=== PATIENT | male | born 2000 | race Caucasian/White ===

== ENCOUNTER 2021-10-23 12:47 | Emergency (ER) | payer OTHER ==
[2021-10-23 12:54] VITALS: BP 141/69
--- NOTE | 2021-10-23 14:37 | ED Physician Documentation ---
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 He states that he stood up and hit his head on a flowerpot today. No loss of consciousness. States was dazed momentarily. No nausea or vomiting. No neck or back pain. No numbness or tingling. Does not take any blood thinners. He states his boss told him to come get "checked out". Review of Systems Constitutional: denies: Fever, Chills Nose: denies: Rhinorrhea / runny nose, Congestion GI: denies: Nausea, Vomiting, Diarrhea Skin: denies: Rash Musculoskeletal: denies: Neck pain, Back pain Neurologic: denies: Focal weakness, Numbness, Seizure, Confused, Headache, LOC PD PAST MEDICAL HISTORY - Past Medical History Past Medical History: No - Allergies Allergies/Adverse Reactions: Allergies Allergy/AdvReac Type Severity Reaction Status Date / Time No Known Drug Allergies Allergy Verified 10/23/21 12:54 - Social History Does the pt smoke?: No Smoking Status: Never smoker PD ED PE NORMAL - Vitals Vital signs reviewed: Yes - General General: Alert and oriented X 3, No acute distress - HEENT HEENT: Atraumatic, PERRL, Moist mucous membranes, Pharynx benign - Neck Neck: Supple, no meningeal sign, No bony TTP, C-Spine cleared by NEXUS criteria - Cardiac Cardiac: RRR - Respiratory Respiratory: No respiratory distress, Clear bilaterally - Abdomen Abdomen: Soft, Non tender, Non distended - Derm Derm: Warm and dry - Neuro Neuro: Alert and oriented X 3, loading machine adjuster 2-12 intact, No motor deficit, No sensory deficit, Normal speech Eye Opening: Spontaneous Motor: Obeys Commands Verbal: Oriented GCS Score: 15 - Psych Psych: Normal mood, Normal affect Results - Vitals Vitals: Vital Signs - 24 hr 10/23/21 12:52 Temperature 36.0 C L Heart Rate 91 Respiratory 16 Rate Blood Pressure 141/69 H O2 Saturation 96 Oxygen O2 Source Room air PD MEDICAL DECISION MAKING - ED course Complexity details: considered differential, d/w patient ED course: Patient is asymptomatic here. Has a mild closed head injury. No indication of concussion. No indication for CT scanning. No indication of skull fracture or intracranial hemorrhage. Patient is asymptomatic. L&I forms completed. Patient counseled regarding signs and symptoms for which I believe and urgent re-evaluation would be necessary. Patient with good understanding of and agreement to plan and is comfortable going home at this time This document was made in part using voice recognition software. While efforts are made to proofread this document, sound alike and grammatical errors may occur. Departure - Departure Disposition: 01 Home, Self Care Clinical Impression: Closed head injury Qualifiers: Encounter type: initial encounter Qualified Code(s): S09.90XA - Unspecified injury of head, initial encounter Condition: Good Instructions: ED Head Injury Closed Follow-Up: your,doctor as needed [Other] Comments: Return if you worsen. This injury should not cause any alf symptoms. Discharge Date/Time: 10/23/21 14:40
== END 2021-10-23 14:40 | disposition home or self-care (01) ==
LOC: ED 12:47
DX: S09.90XA Unspecified injury of head, initial encounter (principal); X58.XXXA Exposure to other specified factors, initial encounter; Y99.0 Civilian activity done for income or pay
CPT/HCPCS: 1040M; 99281; 99282

== ENCOUNTER 2022-08-12 15:01 | Emergency (ER) | payer BC ==
--- NOTE | 2022-08-12 15:28 | ED Physician Documentation ---
History of Present Illness - Stated complaint Stated Complaint: ABD PX - Chief complaint Chief Complaint: Abd Pain - Additonal information Additional information: 21-year-old male presents emergency department for evaluation of painless rectal bleeding. Reports having bowel movement this morning and finding a lot of blood on the stool and in the toilet. Denies straining. No history of hemorrhoids. No history of similar. No history of previous surgical procedures on his abdomen. He is not anticoagulated. Does not drink or take NSAID medication. Denies abdominal pain. Review of Systems Constitutional: denies: Fever, Chills GI: reports: Bloody / black stool : reports: Reviewed and negative Skin: reports: Reviewed and negative PD PAST MEDICAL HISTORY - Allergies Allergies/Adverse Reactions: Allergies Allergy/AdvReac Type Severity Reaction Status Date / Time No Known Drug Allergies Allergy Verified 08/12/22 15:08 - Social History Does the pt smoke?: No Smoking Status: Never smoker PD ED PE NORMAL - General General: Alert and oriented X 3, No acute distress, Well developed/nourished - HEENT HEENT: Atraumatic, Moist mucous membranes - Neck Neck: Supple, no meningeal sign - Cardiac Cardiac: RRR, No murmur - Respiratory Respiratory: No respiratory distress, Clear bilaterally - Abdomen Abdomen: Normal bowel sounds, Soft. 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 Small amount of soft brown stool in vault. Sent for occult blood testing) - Derm Derm: Normal color, Warm and dry, No rash - Extremities Extremities: No deformity - Neuro Neuro: Alert and oriented X 3 Eye Opening: Spontaneous Motor: Obeys Commands Verbal: Oriented GCS Score: 15 Results - Vitals Vitals: Vital Signs - 24 hr 08/12/22 08/12/22 15:05 15:24 Temperature 36.4 C L Heart Rate 60 66 Respiratory 15 18 Rate Blood Pressure 123/66 154/81 H O2 Saturation 100 100 Oxygen O2 Source Room air - Labs Labs: Microbiology 08/12/22 15:20 Occult Blood - Final Stool Laboratory Tests 08/12/22 08/12/22 15:26 15:26 WBC 6.6 RBC 4.93 Hgb 14.9 Hct 44.3 MCV 89.9 MCH 30.2 MCHC 33.6 RDW 12.8 Plt Count 241 MPV 10.2 Neut # (Auto) 3.0 Lymph # (Auto) 2.6 Rush # (Auto) 0.7 Eos # (Auto) 0.2 Baso # (Auto) 0.1 Absolute Nucleated RBC 0.00 Nucleated RBC % 0.0 Sodium 137 Potassium 4.0 Chloride 102 Carbon Dioxide 26 Anion Gap 9.0 BUN 20 Creatinine 0.8 Estimated GFR (MDRD) 123 Glucose 92 Calcium 9.7 Total Bilirubin 1.0 AST 26 ALT 27 Alkaline Phosphatase 55 Total Protein 7.8 Albumin 4.9 Globulin 2.9 Albumin/Globulin Ratio 1.7 Lipase 31 PD Medical Decision Making - ED course Complexity details: reviewed results, re-evaluated patient, considered differential, d/w patient ED course: 21-year-old male presents emergency department for evaluation of painless rectal bleeding that he noted after defecation this morning. He states he has never had this before. Has daily bowel movements without straining. No history of constipation. He states it was a large amount of blood in the stool. He denies fevers or abdominal pain. Does not take NSAIDs nor is he anticoagulated. Denies alcohol use. On exam he appears remarkably well. No abdominal tenderness was elicited. Chaperoned rectal exam did reveal a small amount soft brown stool in the vault which was subsequently sent for occult testing and was unfortunately positive. A CBC and electrolytes completed today per my interpretation show no acute worrisome findings. Specifically no anemia. His vital signs are reviewed and he is mildly hypertensive but not tachycardic or febrile. I am I discussed with the patient that the most common cause for painless rectal bleeding in a young male with his age and history is internal hemorrhoids. I have made the recommendation for him to use Anusol after defecation. However more worrisome causes such as colon cancer could not be fully ruled out. He will follow-up with PCP or local walk-in clinic in order to obtain referral for a colonoscopy. I deferred CT imaging today as no abdominal tenderness was elicited and I am less suspicious for causes such as a bleeding diverticulum. He is discharged home in stable condition with usual emergent return precautions discussed. Departure - Departure Disposition: 01 Home, Self Care Clinical Impression: Rectal bleeding, Guaiac positive stools Condition: Stable Record reviewed to determine appropriate education?: Yes Instructions: ED Hematochezia Stable Comments: You came to the emergency department today because you had painless rectal bleeding after bowel movement this morning. The most common cause of this in a young otherwise healthy individual is internal hemorrhoids. I recommend that you buy Anusol or Preparation H suppositories and insert 1 in your rectum after bowel movement each day for the next 4 to 5 days. The more worrisome causes of painless rectal bleeding can be due to cancer however. Because of this it is recommended that you follow closely with your primary care provider or one of the walk-in clinics to obtain a referral for a screening colonoscopy. We did obtain a CBC and electrolytes today in the emergency department and they were entirely unremarkable and normal. The stool that we sent was positive for blood however. If at any point you find that your symptoms worsen, you have severe rectal bleeding a manner that you would need to wear a menstrual pad, have a racing heart rate at rest, any fainting episodes, chest pain or shortness of air then please return immediately to the ER for a second evaluation
[2022-08-12 15:33] LABS: BASOPHILS # (AUTO) 0.1 10^3/uL (0.0-0.1); BASOPHILS % (AUTO) 0.8 %; EOSINOPHILS # (AUTO) 0.2 10^3/uL (0.0-0.7); EOSINOPHILS % (AUTO) 2.7 %; HCT - HEMATOCRIT 44.3 % (42.0-52.0); HGB - HEMOGLOBIN 14.9 g/dL (14.0-18.0); LYMPHOCYTES # (AUTO) 2.6 10^3/uL (1.5-3.5); LYMPHOCYTES % (AUTO) 39.5 %; MEAN CORPUSCULAR HEMOGLOBIN 30.2 pg (27.0-31.0); MEAN CORPUSCULAR HGB CONC 33.6 g/dL (32.0-36.0); MEAN CORPUSCULAR VOLUME 89.9 fL (80.0-94.0); MEAN PLATELET VOLUME 10.2 fL (7.4-11.4); MONOCYTES # (AUTO) 0.7 10^3/uL (0.0-1.0); MONOCYTES % (AUTO) 10.8 %; PLT - PLATELET COUNT 241 10^3/uL (130-450); RED BLOOD COUNT 4.93 10^6/uL (4.70-6.10); RED CELL DISTRIBUTION WIDTH 12.8 % (12.0-15.0); WHITE BLOOD COUNT 6.6 x10^3/uL (4.8-10.8)
[2022-08-12 15:48] LABS: ALBUMIN 4.9 g/dL (3.2-5.5); ALBUMIN/GLOBULIN RATIO 1.7 (1.0-2.2); CALCIUM 9.7 mg/dL (8.5-10.3); CREATININE 0.8 mg/dL (0.6-1.2); TOTAL PROTEIN 7.8 g/dL (6.7-8.2)
[2022-08-12 16:18] VITALS: BP 127/73
== END 2022-08-12 16:19 | disposition home or self-care (01) ==
LOC: ED 15:01
DX: K62.5 Hemorrhage of anus and rectum (principal); R19.5 Other fecal abnormalities
CPT/HCPCS: 36415; 80053; 82272; 83690; 85025; 99283